=== PATIENT | female | born 1970 | race Caucasian/White ===

== ENCOUNTER → 2017-09-23 | Outpatient (CLI) | payer BC ==
[~2017-09-23] MED LIST: ASPI-621 PO; DIAZ5TAB PO; DOCU-131 PO; MELO7.5T31 PO; ONDA4TAB10 PO; OXYC-307 PO; OXYC10TA47 PO; OXYC5CAP2 PO; SULF1TAB24 PO
[2017-09-23 14:42] LABS: BASOPHILS # (AUTO) 0.04 x10^3/uL (0-0.1); BASOPHILS % (AUTO) 1 % (0-1); EOSINOPHILS # (AUTO) 0.16 x10^3/uL (0-0.4); EOSINOPHILS % (AUTO) 2 % (1-7); LYMPHOCYTES # (AUTO) 2.37 x10^3/uL (1-3.4); LYMPHOCYTES % (AUTO) 33 % (22-44); MD NO; MEAN CORPUSCULAR HEMOGLOBIN 26.8 pg (27.0-34.8); MEAN CORPUSCULAR HGB CONC 32.7 g/dL (32.4-35.8); MEAN PLATELET VOLUME 9.1 fL (7.4-10.4); MONOCYTES # (AUTO) 0.62 x10^3/uL (0.2-0.8); MONOCYTES % (AUTO) 9 % (2-9); NEUTROPHILS # (AUTO) 4.04 x10^3/uL (1.8-6.8); NEUTROPHILS % (AUTO) 56 % (42-75); PLATELET COUNT 333 x10^3/uL (130-400); RED CELL DISTRIBUTION WIDTH 14.9 % (9.6-15.2)
[2017-09-23 14:46] LABS: ALBUMIN 3.9 g/dL (3.4-5.0); ANION GAP 10 mmol/L (5-15); CALCIUM 8.9 mg/dL (8.5-10.1); CHLORIDE 108 mmol/L (98-107)
[2017-09-23 14:47] LABS: PROTHROMBIN TIME 10.3 Seconds (9.6-11.5)
[2017-09-23 14:50] LABS: ALANINE AMINOTRANSFERASE 18 U/L (12-78); ALKALINE PHOSPHATASE 115 U/L (45-117); BILIRUBIN,TOTAL 0.4 mg/dL (0.2-1.0); CREATININE 0.67 mg/dL (0.55-1.02); TOTAL PROTEIN 7.8 g/dL (6.4-8.2)
[2017-09-23 14:59] LABS: HEMOGLOBIN A1C 5.3 % (4.2-6.3)
== END | disposition home or self-care (01) ==
LOC: STAR 13:27
PROVIDERS: ATTEND Orthopaedic Surgery
DX: Z01.818 Encounter for other preprocedural examination (principal); M16.11 Unilateral primary osteoarthritis, right hip
CPT/HCPCS: 36415; 80053; 83036; 85025; 85610; 85730; 86703; 87081; 87899; 93005; G0435

== ENCOUNTER 2017-09-27 07:00 | Inpatient (IN) | payer BC ==
[~2017-09-27] VITALS: Ht 170.2 cm; Wt 98.2 kg
[~2017-09-27 07:00] MED LIST changes: -ASPI-621 PO; -DIAZ5TAB PO; -DOCU-131 PO; +EPINEPHRINE 1 MG/ML, 1ML ONE; +KETOROLAC 60 MG/2 ML ONE; -MELO7.5T31 PO; -ONDA4TAB10 PO; -OXYC10TA47 PO; -OXYC5CAP2 PO; +ROPIvacaine/PF 0.2%, 20 ML ONE; +SODIUM CHLORIDE 0.9% 100 ML ONE; -SULF1TAB24 PO; +TRANEXAMIC ACID 100 MG/ML, 10ML ONE
[2017-09-27] MEDS ORDERED: LACTATED RINGERS 1,000 ML IV SCH (07:25)
[2017-09-27] MEDS ORDERED: VANCOMYCIN 1,700 MG in SODIUM CHLORIDE 0.9% 250 ML IV ONE (07:30)
[2017-09-27] MEDS ORDERED: VANCOMYCIN PER PHARMACY MC PRN (07:30)
[2017-09-27] MEDS ORDERED: GABAPENTIN 300 MG CAPSULE PO ONE (07:30)
[2017-09-27] MEDS ORDERED: ACETAMINOPHEN 500 MG TABLET PO ONE (07:30)
[2017-09-27 07:35] LABS: HCG UR SG 1.022 (1.003-1.030)
[2017-09-27] MEDS ORDERED: OxyconTIN ER 10 MG TAB.ER ONE (07:36)
[2017-09-27 07:59] VITALS: BP 112/76
[2017-09-27] MEDS ORDERED: OxyconTIN ER 10 MG TAB.ER PO ONE (08:00)
[2017-09-27] MEDS ORDERED: FENTANYL PF 250 MCG/5ML ONE (08:14)
[2017-09-27] MEDS ORDERED: MIDAZOLAM 1 MG/ML, 2ML ONE (08:14)
[2017-09-27] MEDS ORDERED: PROPOFOL 10 MG/ML, 20ML ONE (08:15)
[2017-09-27] MEDS ORDERED: ROCURONIUM 10 MG/ML,10ML ONE (08:15)
[2017-09-27] MEDS ORDERED: SUCCINYLCHOLINE 20 MG/ML, 10ML ONE (08:15)
[2017-09-27] MEDS ORDERED: LIDOCAINE 4%, 4 ML SYR/CANN TP ONE (08:17)
[2017-09-27] MEDS ORDERED: KETAMINE 10 MG/ML, 20ML ONE (09:01)
[2017-09-27] MEDS ORDERED: PROPOFOL 50 ML ONE ×2 (09:02→11:07)
[2017-09-27] MEDS ORDERED: DEXAMETHASONE 4 MG/ML, 1ML ONE (09:45)
[2017-09-27] MEDS ORDERED: ONDANSETRON 2MG/ML, 2ML ONE (09:45)
[2017-09-27] MEDS ORDERED: CEFAZOLIN 1,000 MG ONE (09:45)
[2017-09-27] MEDS ORDERED: LACTATED RINGERS 1,000 ML ONE (09:45)
[2017-09-27] MEDS ORDERED: ACETAMINOPHEN 325 MG TABLET PO PRN (10:00)
[2017-09-27] MEDS ORDERED: ALUMINUM/MAG/SIMETHICONE 30 ML UDC PO PRN (10:00)
[2017-09-27] MEDS ORDERED: ONDANSETRON 4 MG TABLET PO PRN (10:00)
[2017-09-27] MEDS ORDERED: MAGNESIUM HYDROXIDE 8%, 30ML UDC PO PRN (10:00)
[2017-09-27] MEDS ORDERED: SENNA/DOCUSATE TABLET PO PRN (10:00)
[2017-09-27] MEDS ORDERED: ACETAMINOPHEN 650 MG/20.3 ML UDC PO PRN (10:00)
[2017-09-27] MEDS ORDERED: HYDROcodone/APAP 7.5-325MG/15ML UDC PO PRN (10:00)
[2017-09-27] MEDS ORDERED: TRANEXAMIC ACID 1,000 MG in SODIUM CHLORIDE 0.9% 100 ML IVPB ONE (10:00)
[2017-09-27] MEDS ORDERED: ONDANSETRON 2MG/ML, 2ML IVPush PRN (10:00)
[2017-09-27] MEDS ORDERED: DIAZEPAM 5 MG TABLET PO PRN (10:00)
[2017-09-27] MEDS ORDERED: DIPHENHYDRAMINE 25 MG CAPSULE PO PRN (10:00)
[2017-09-27] MEDS ORDERED: ONDANSETRON 2MG/ML, 2ML IV PRN (10:00)
[2017-09-27] MEDS ORDERED: HYDROmorphone 1 MG/ML, 1ML IV PRN (10:00)
[2017-09-27] MEDS ORDERED: OXYcodone 5 MG/5 ML ORAL.SOL UDC PO PRN (10:00)
[2017-09-27] MEDS ORDERED: HYDROmorphone 2 MG/ML, 1ML ONE ×2 (10:04→12:20)
[2017-09-27] MEDS: HYDROmorphone 1 MG/ML, 1ML IV PRN ×4 (12:17→12:55)
[2017-09-27] MEDS ORDERED: ACETAMINOPHEN 650 MG/20.3 ML UDC ONE (12:19)
[2017-09-27] MEDS ORDERED: OXYcodone 5 MG/5 ML ORAL.SOL UDC ONE (12:20)
[2017-09-27] MEDS ORDERED: FENTANYL PF 100 MCG/2ML ONE (12:20)
[2017-09-27] MEDS: FENTANYL PF 100 MCG/2ML IV PRN ×2 (12:20→12:30)
[2017-09-27] MEDS ORDERED: CEFAZOLIN PMX 1GM/50ML 50 ML IVPB SCH (15:00)
[2017-09-27] MEDS: D5%-0.45NACL+KCL 20MEQ 1,000 ML IV SCH (18:08)
[2017-09-27] MEDS: ASPIRIN 81 MG TABLET EC PO SCH (18:08)
[2017-09-27] MEDS: CEFAZOLIN PMX 1GM/50ML 50 ML IVPB SCH (18:08)
[2017-09-27] MEDS: OXYcodone IR 5MG TABLET PO PRN (18:08)
[2017-09-27 19:30] VITALS: BP 128/77
[2017-09-27] MEDS: OxyconTIN ER 10 MG TAB.ER PO SCH (19:45)
[2017-09-27] MEDS: PREGABALIN 75 MG CAPSULE PO SCH (19:45)
[2017-09-27] MEDS: DOCUSATE 100 MG CAPSULE PO SCH (19:45)
[2017-09-27] MEDS: SULFAMETH./TRIMETHOPRIM DS 800MG/160MG TABLET PO SCH (19:46)
[2017-09-28 00:08] VITALS: BP 133/86
[2017-09-28] MEDS: CEFAZOLIN PMX 1GM/50ML 50 ML IVPB SCH (01:54)
[2017-09-28 04:00] VITALS: BP 127/80
[2017-09-28] MEDS: D5%-0.45NACL+KCL 20MEQ 1,000 ML IV SCH ×2 (04:00→09:40)
[2017-09-28] MEDS: OXYcodone IR 5MG TABLET PO PRN ×3 (05:15→10:10)
[2017-09-28] MEDS: ASPIRIN 81 MG TABLET EC PO SCH (05:15)
[2017-09-28] MEDS ORDERED: DEXAMETHASONE 4 MG/ML, 1ML IVPush SCH (06:00)
[2017-09-28 07:29] VITALS: BP 121/76
[2017-09-28] MEDS: PREGABALIN 75 MG CAPSULE PO SCH (08:58)
[2017-09-28] MEDS: OxyconTIN ER 10 MG TAB.ER PO SCH (08:58)
[2017-09-28] MEDS: DOCUSATE 100 MG CAPSULE PO SCH (08:58)
[2017-09-28] MEDS: SULFAMETH./TRIMETHOPRIM DS 800MG/160MG TABLET PO SCH (08:58)
[2017-09-28] MEDS ORDERED: TAMSULOSIN 0.4 MG CAP.ER.24H PO SCH (09:00)
[2017-09-28] MEDS ORDERED: KETOROLAC 30 MG/1 ML IV SCH (10:00)
[2017-09-28 11:00] VITALS: BP 127/60
[2017-09-28] MEDS ORDERED: ASPI-621 PO (11:58)
[2017-09-28] MEDS ORDERED: ONDA4TAB10 PO (12:03)
[2017-09-28] MEDS ORDERED: DOCU-131 PO (12:03)
[2017-09-28] MEDS ORDERED: SULF1TAB24 PO (12:07)
[2017-09-28] MEDS ORDERED: DIAZ5TAB PO (12:20)
[2017-09-28] MEDS ORDERED: OXYC5CAP2 PO (12:20)
[2017-09-28] MEDS ORDERED: MELO7.5T31 PO (12:22)
[2017-09-28] MEDS ORDERED: OXYC10TA47 PO (12:24)
== END 2017-09-28 12:12 | disposition home or self-care (01) | DRG 470 ==
LOC: OUT 07:00 → ORIP 09:31 → 4NOR 14:29 → DCLOUNGE 09-28 12:12
PROVIDERS: ADMIT Orthopaedic Surgery; ATTEND Orthopaedic Surgery
PROC: 0SR90JZ Replacement of Right Hip Joint with Synthetic Substitute, Open Approach (ICD-10-PCS; principal; 2017-09-27 09:30)
DX: M87.851 Other osteonecrosis, right femur (principal)
CPT/HCPCS: 36415; 72170; 81025; 85014; 85018; 86850; 86900; 87015; 87070; 87075; 87102; 87116; 87205; 87206; 88300; C1713; J0171; J0690; J1100; J1170; J1885; J2250; J2405; J2704; J2795; J3010; J3370; C1776; J0330; J3480; J7050; J7120; Q0163

== ENCOUNTER 2020-04-11 19:51 | Emergency (ER) | payer BC ==
[~2020-04-11] VITALS: Ht 172.7 cm; Wt 112.0 kg
[~2020-04-11 19:51] MED LIST changes: +ASPI81TA45 PO; +DIAZ5TAB PO; +DOCU-131 PO; -EPINEPHRINE 1 MG/ML, 1ML ONE; -KETOROLAC 60 MG/2 ML ONE; +MELO7.5T31 PO; +ONDA4TAB10 PO; +OXYC10TA47 PO; +OXYC5CAP2 PO; -ROPIvacaine/PF 0.2%, 20 ML ONE; -SODIUM CHLORIDE 0.9% 100 ML ONE; +SULF1TAB24 PO; -TRANEXAMIC ACID 100 MG/ML, 10ML ONE
[2020-04-11] MEDS ORDERED: LORazepam 2 MG/ML, 1ML ONE (20:15)
--- NOTE | 2020-04-11 20:20 | NUR ---
BREAK RN: PT IN ROOM VERY ANXIOUS. PT PACING IN ROOM. AT SIDE. PT REPEATEDLY STATING SHE CAN'T BREATH. 1 MG ATIVAN GIVEN IM PER VERBAL ORDER RECIEVED.
[2020-04-11] MEDS ORDERED: LORazepam 2 MG/ML, 1ML IVPush ONE (20:30)
[2020-04-11] MEDS ORDERED: ZIPRASIDONE 20 MG INJ IM ONE ×2 (20:32→21:00)
--- NOTE | 2020-04-11 21:08 | NUR ---
PATIENT COOPERATIVE AT THIS TIME, ABLE TO ANSWER ALL QUESTIONS. REFUSING VS AT THIS TIME HOWEVER
--- NOTE | 2020-04-11 22:22 | NUR ---
PATIENT SLEEPING AT THIS TIME, PLACED ON 2L NC DUE TO DESAT. TOLERATING WELL AT THIS TIME. AROUSABLE TO VERBAL STIMULI. MONITORING IN PLACE, TOELRATING VS
[2020-04-11 23:52] VITALS: BP 103/53
--- NOTE | 2020-04-11 23:52 | NUR ---
Patient/Caregiver given discharge instructions and they have confirmed that they understand the instructions. Patient ambulatory with steady gaitin room, wheeled to discharge for safety of patient.
== END 2020-04-11 23:54 | disposition home or self-care (01) ==
LOC: ED 22:29
DX: F43.12 Post-traumatic stress disorder, chronic (principal); F41.1 Generalized anxiety disorder; R06.4 Hyperventilation; F60.9 Personality disorder, unspecified; R10.9 Unspecified abdominal pain; X58.XXXA Exposure to other specified factors, initial encounter; Y93.89 Activity, other specified; Y92.89 Other specified places as the place of occurrence of the external cause; Y99.8 Other external cause status
CPT/HCPCS: 96372; 96374; 99284; J2060; J3486